=== PATIENT | female | born 1985 | race Two or more races ===

== ENCOUNTER 2022-09-03 09:27 | Emergency (ER) | payer BC ==
[~2022-09-03] VITALS: Ht 149.9 cm; Wt 67.9 kg
[2022-09-03 09:55] LABS: Urine Bacteria NONE SEEN /hpf (None Seen); Urine Blood 3+ /uL (Negative); Urine Specific Gravity 1.006 (1.001-1.035); Urine WBC <1 /hpf (0 - 5)
[2022-09-03 11:05] VITALS: BP 145/97
== END 2022-09-03 11:21 | disposition home or self-care (01) ==
LOC: ER 09:39
DX: O20.0 Threatened abortion (principal); Z3A.01 Less than 8 weeks gestation of pregnancy
CPT/HCPCS: 36415; 81001; 84702

== ENCOUNTER 2022-09-05 08:09 | Emergency (ER) | payer BC ==
[~2022-09-05] VITALS: Ht 149.9 cm; Wt 69.6 kg
[2022-09-05 08:23] VITALS: BP 114/88
[2022-09-05] MEDS ORDERED: SODIUM CHLORIDE 0.9% 1,000 ML IV ONE (10:30)
[2022-09-05 11:15] LABS: Basophils # (auto) 0 10 ^3/uL (0-0.2); Basophils % (auto) 0.7 % (0.0-2.0); Eosinophils # (auto) 0.1 10 ^3/uL (0-0.8); Eosinophils % (auto) 1.8 % (0.0-7.0); Hematocrit 37.1 % (36.0-46.0); Hemoglobin 12.4 g/dL (12.2-16.2); Lymphocytes # (auto) 1.5 10 ^3/uL (0.4-5.4); Lymphocytes % (auto) 26.2 % (10.0-50.0); Mean Corpuscular Hemoglobin 30.7 pg (28.0-32.0); Mean Corpuscular Hgb Conc. 33.5 g/dL (32.0-36.0); Mean Corpuscular Volume 91.6 fL (80.0-100.0); Monocytes # (auto) 0.3 10 ^3/uL (0-1.3); Monocytes % (auto) 4.8 % (0.0-12.0); Neutrophils # (auto) 3.7 10 ^3/uL (1.6-8.6); Neutrophils % (auto) 66.5 % (37.0-80.0); Nucleated Red Blood Cells % 0.2 %; Red Blood Cells 4.05 10^6/uL (4.0-5.20); Red Cell Distribution Width 13.3 % (11.8-14.3); White Blood Cell 5.6 10^3/uL (4.4-10.8)
[2022-09-05 11:18] LABS: BUN/Creatinine Ratio 13.1; Calcium 8.9 mg/dL (8.5-10.1); Potassium 3.6 mmol/L (3.5-5.1)
[2022-09-05 11:20] LABS: INR 0.97 (0.9-1.15)
[2022-09-05] MEDS ORDERED: METHOTREXATE SODIUM 25 MG/ML 2ML SDV INJ IM ONE ×2 (13:30→15:00)
== END 2022-09-05 15:18 | disposition home or self-care (01) ==
LOC: ER 08:09
DX: O00.90 Unspecified ectopic pregnancy without intrauterine pregnancy (principal); R10.2 Pelvic and perineal pain
CPT/HCPCS: 36415; 76801; 76817; 80048; 84702; 85025; 85610; 86850; 86900; 86901; 96360; 96361; 96372; 99284; J9250